=== PATIENT | female | born 1970 | race Caucasian/White ===

== ENCOUNTER 2020-10-10 21:45 | Inpatient (IN) | payer OTHER ==
[~2020-10-10] VITALS: Ht 160 cm; Wt 78.0 kg
[2020-10-11] MEDS ORDERED: VISTARIL 50 MG50 MG PO (01:31)
[2020-10-11 04:00] LABS: HEMOGLOBIN 13.8 gm/dl (12.3-15.3); RED BLOOD COUNT 4.6 M/UL (4.00-5.10); WHITE BLOOD COUNT 23.8 K/UL (4.5-11.0)
[2020-10-11 04:27] LABS: BUN/CREATININE RATIO 8 (0-10)
[2020-10-11] MEDS ORDERED: PROAIR HFA8.5 GM PO (10:50)
[2020-10-11] MEDS ORDERED: RISPERIDONE1 MG PO (10:53)
[2020-10-11] MEDS ORDERED: IBU600 MG PO (10:54)
[2020-10-11] MEDS ORDERED: BENADRYL 25MG C25 MG PO (10:55)
[2020-10-11] MEDS ORDERED: RISPERIDONE0.5 MG PO (11:02)
[2020-10-12 03:14] LABS: RED BLOOD COUNT 4.39 M/UL (4.00-5.10); WHITE BLOOD COUNT 21.7 K/UL (4.5-11.0)
[2020-10-12 03:35] LABS: BUN/CREATININE RATIO 19 (0-10)
[2020-10-14 21:10] LABS: ANTIMYELOPEROXIDASE (MPO) ABS <9.0 U/mL (0.0-9.0); ANTIPROTEINASE 3 (PR-3) ABS <3.5 U/mL (0.0-3.5); ATYPICAL PANCA <1:20 titer (Neg:<1:20); CYTOPLASMIC (C-ANCA) <1:20 titer (Neg:<1:20); PERINUCLEAR (P-ANCA) <1:20 titer (Neg:<1:20)
[2020-10-17 11:14] LABS: ASPERGILLUS FUMAGATUS IGG Negative (Negative); AUREOBASIDIUM PULLULANS IGG Negative (Negative); MICROPOLYSPORA FAENI IGG Negative (Negative); PIGEON SERUM IGG Negative (Negative); THERMOACTINOMYCES SACCHARI IGG Negative (Negative); THERMOACTINOMYCES VULGARIS IGG Negative (Negative)
== END 2020-10-12 06:30 | disposition expired ==
LOC: PROG CARE 21:45
PROVIDERS: Internal Medicine; Nurse Practitioner Family; ADMIT Internal Medicine
PROC: B24BZZZ Ultrasonography of Heart with Aorta (ICD-10-PCS; principal; 2020-10-11)
PROC: 0BH17EZ Insertion of Endotracheal Airway into Trachea, Via Natural or Artificial Opening (ICD-10-PCS; 2020-10-12)
PROC: 5A1935Z Respiratory Ventilation, Less than 24 Consecutive Hours (ICD-10-PCS; 2020-10-12)
DX: I21.4 Non-ST elevation (NSTEMI) myocardial infarction (principal); J96.01 Acute respiratory failure with hypoxia; J44.1 Chronic obstructive pulmonary disease with (acute) exacerbation; E87.2 Acidosis; Z20.822 Contact with and (suspected) exposure to COVID-19; E87.6 Hypokalemia; F17.210 Nicotine dependence, cigarettes, uncomplicated; F12.10 Cannabis abuse, uncomplicated; B19.20 Unspecified viral hepatitis C without hepatic coma; K74.60 Unspecified cirrhosis of liver; F31.9 Bipolar disorder, unspecified; F41.9 Anxiety disorder, unspecified; E66.9 Obesity, unspecified; Z68.30 Body mass index [BMI] 30.0-30.9, adult; Z98.51 Tubal ligation status; Z82.3 Family history of stroke; I46.9 Cardiac arrest, cause unspecified
CPT/HCPCS: ECHO; 0240U; 31500; 36415; 36600; 71275; 80048; 80053; 80061; 80307; 82550; 82553; 82803; 83520; 83605; 83735; 83880; 84484; 85025; 85379; 85652; 85730; 86038; 86140; 86256; 86331; 86602; 86609; 86671; 87040; 92950; 93005; 93306; 94640; 94760; J0171; J0282; J0456; J0461; J0696; J1644; J2920; J7030; Q0177; Q9967